=== PATIENT | female | born 1955 | race Caucasian/White ===

== ENCOUNTER 2018-02-13 12:44 | Emergency (ER) | payer MEDICAID ==
[~2018-02-13] VITALS: Ht 152.4 cm; Wt 70.0 kg
[~2018-02-13 12:44] MED LIST: DIVA500T2 PO; HYDR-4069 PO; HYDR-565 PO
[2018-02-13 12:56] VITALS: BP 149/67
[2018-02-13] MEDS ORDERED: HYDR-3965 PO (13:31)
== END 2018-02-13 14:15 | disposition home or self-care (01) ==
LOC: ER 12:45
DX: S00.81XA Abrasion of other part of head, initial encounter (principal); S00.212A Abrasion of left eyelid and periocular area, initial encounter; M54.2 Cervicalgia; I10 Essential (primary) hypertension; K21.9 Gastro-esophageal reflux disease without esophagitis; M19.90 Unspecified osteoarthritis, unspecified site; Z59.0 Homelessness; Z88.6 Allergy status to analgesic agent; Z79.899 Other long term (current) drug therapy; Z88.8 Allergy status to other drugs, medicaments and biological substances; W01.0XXA Fall on same level from slipping, tripping and stumbling without subsequent striking against object, initial encounter; Y93.89 Activity, other specified; Y92.89 Other specified places as the place of occurrence of the external cause; Y99.8 Other external cause status
CPT/HCPCS: 70450; 72125; 99284; A6449